=== PATIENT | male | born 1985 | race Caucasian/White ===

== ENCOUNTER 2017-08-29 19:33 | Emergency (ER) | payer OTHER ==
[2017-08-29 19:40] VITALS: BP 154/99; PULSE 69; TEMP 98.2; BMI 27.7
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
== END 2017-08-29 21:26 | disposition home or self-care (01) ==
LOC: JERFT 19:33
DX: S46.812A Strain of other muscles, fascia and tendons at shoulder and upper arm level, left arm, initial encounter (principal); T14.8XXA Other injury of unspecified body region, initial encounter; V49.9XXA Car occupant (driver) (passenger) injured in unspecified traffic accident, initial encounter; W22.12XA Striking against or struck by front passenger side automobile airbag, initial encounter; Y92.414 Local residential or business street as the place of occurrence of the external cause; Y93.89 Activity, other specified; Y99.0 Civilian activity done for income or pay
CPT/HCPCS: 71101-TC-FY; 99281-25

== ENCOUNTER 2022-12-24 07:19 | Emergency (ER) | payer OTHER ==
[2022-12-24 07:27] VITALS: BP 120/80; PULSE 80; TEMP 97.8; BMI 28.0
== END 2022-12-24 08:09 | disposition home or self-care (01) ==
LOC: JER 07:19
DX: L50.9 Urticaria, unspecified (principal)
CPT/HCPCS: 99282-25